=== PATIENT | male | born 1985 | race African-American/Black ===

== ENCOUNTER 2022-10-17 19:12 | Emergency (ER) | payer OTHER, SELFPAY ==
--- NOTE | ~2022-10-17 | XR_ITS ---
EXAMINATION: XR CHEST CLINICAL INFORMATION: Chest pain COMPARISON: None TECHNIQUE: 2 views of the chest were obtained. FINDINGS: No significant abnormality is noted involving the heart, lungs, mediastinum, bony thorax or soft tissues. XR/XR chest 2V IMPRESSION: Unremarkable examination.
--- NOTE | 2022-10-17 19:24 | ECG_ITS ---
Test Reason : cx pain Blood Pressure : / mmHG Vent. Rate : 084 BPM Atrial Rate : 084 BPM P-R Int : 152 ms QRS Dur : 086 ms QT Int : 338 ms P-R-T Axes : 072 025 041 degrees QTc Int : 399 ms Normal sinus rhythm Normal ECG No previous ECGs available Referred By: Lisandra Blanco Electronically Signed By:Liborio Bell
[2022-10-17 19:26] VITALS: BP 111/78; PULSE 85; RESP 18; TEMP 37; O2SAT 100; BMI 28.5
--- NOTE | 2022-10-17 19:26 | ED.GENADULT ---
HPI - General Adult General Chief complaint: General Medical <Lisandra Blanco CNP - Last Filed: 10/17/22 19:32> Stated complaint: sickle cell crisis ,chest pain <Lisandra Blanco CNP - Last Filed: 10/17/22 19:32> Time Seen by Provider: 10/17/22 22:35 <Lisandra Balnco CNP - Last Filed: 10/17/22 19:32> History of Present Illness HPI narrative: Patient is a 36-year-old male with history of sickle cell, HIV on Bictarvy with reportedly undetectable levels who presents emergency department for evaluation of sickle cell crisis. Reports onset of pain yesterday got worse today diffuse all over the body; headache, chest pain, bilateral legs, right hip, and bilateral foot swelling. Reports last crisis 3-4 weeks ago.? He is traveling from [place], drove here today, arrived approximately 2 hours ago.? Pain has been unrelieved with MS Contin (took at 0600) and hydrocodone (took at 0600, and 1100) without any improvement. Patient was on adekveo infusion monthly. <Chris Baldwin MD - Last Filed: 10/18/22 03:04> Related Data Allergies/adverse reactions: Allergies Allergy/AdvReac Type Severity Reaction Status Date / Time No Known Allergies Allergy Verified 10/17/22 19:24 <Lisandra Blanco CNP - Last Filed: 10/17/22 19:32> Review of Systems Review of Systems: Yes all other systems are reviewed and are negative <Chris Baldwin MD - Last Filed: 10/18/22 03:04> [facility] Past Medical History Medical History: Medical History (Updated 10/18/22 @ 02:41 by Chris Baldwin MD) HIV (human immunodeficiency virus infection) Sickle cell anemia <Lisandra Blanco CNP - Last Filed: 10/17/22 19:32> Social History Social History: Social History Advance Directives: No Advance Directives Information Provided: No <Lisandra Blanco CNP - Last Filed: 10/17/22 19:32> Physical Exam ED Vital Signs: Vital Signs - 24 hr 10/17/22 19:26 10/18/22 00:01 Temperature 98.6 F 98.0 F Pulse Rate 85 81 Respiratory Rate 18 17 Blood Pressure 111/78 119/76 Pulse Oximetry 100 96 Oxygen Delivery Method Room Air Room Air BMI result Body Mass Index 28.5 <Lisandra GaribayWILFREDO alvarez - Last Filed: 10/17/22 19:32> Vital Signs - 24 hr 10/17/22 19:26 10/18/22 00:01 Temperature 98.6 F 98.0 F Pulse Rate 85 81 Respiratory Rate 18 17 Blood Pressure 111/78 119/76 Pulse Oximetry 100 96 Oxygen Delivery Method Room Air Room Air BMI result Body Mass Index 28.5 <Chris Baldwin MD - Last Filed: 10/18/22 03:04> Appearance: Alert. Oriented X3. No acute distress. Eyes: Pallor++ ENT: Pharynx normal. Oral Mucosa moist Neck: Normal inspection. Neck supple. CVS: Normal heart rate and rhythm. Pulses normal. Respiratory: No respiratory distress. Equal air entry bilateral, no wheezing/rales/rhonchi Abdomen: Soft and nontender. Bowel sounds are present, no mass palpable, no CVA tenderness Skin: Skin warm and dry. Normal skin color. Normal skin turgor. Extremities: Trace lower extremity edema. No calf tenderness Neuro: Oriented X 3. No motor deficit. <Chris Baldwin MD - Last Filed: 10/18/22 03:04> Course Course Course Narrative: This is an RME: Additional HPI, ROS, PE not included below will be deferred to primary provider. Patient is a 36-year-old male with history of sickle cell, HIV on Bictarvy with reportedly undetectable levels who presents emergency department for evaluation of sickle cell crisis. Reports onset of pain yesterday; headache, chest pain, bilateral legs, right hip, and bilateral foot swelling. Reports last crisis 3-4 weeks ago. He is traveling from [place], drove here today, arrived approximately 2 hours ago. Pain has been unrelieved with MS Contin (took at 0600) and hydrocodone (took at 0600, and 1100) without any improvement. Has a port to R chest, is requesting labs be drawn from port as he is a difficult stick, he is agreeable to 1 attempt at lab draw from triage by peripheral stick. Plan: labs, EKG, CXR, viral testing <Lisandra Blanco CNP - Last Filed: 10/17/22 19:32> Medications Administered Discontinued Medications Generic Name Dose Route Start Last Admin Trade Name Juan PRN Reason Stop Dose Admin Diphenhydramine HCl 50 mg 10/17/22 22:44 10/17/22 23:14 Diphenhydramine Hcl 50 Mg/Ml Vial IVPUSH 10/17/22 22:45 50 mg ONCE ONE Administration Diphenhydramine HCl 50 mg 10/18/22 00:20 10/18/22 00:33 Diphenhydramine Hcl 50 Mg/Ml Vial IVPUSH 10/18/22 00:21 50 mg ONCE ONE Administration Hydromorphone HCl 2 mg 10/17/22 22:38 10/17/22 23:13 Hydromorphone Hcl 2 Mg/Ml Vial IVPUSH 10/17/22 22:39 2 mg ONCE ONE Administration Protocol Hydromorphone HCl 2 mg 10/18/22 00:20 10/18/22 00:33 Hydromorphone Hcl 2 Mg/Ml Vial IVPUSH 10/18/22 00:21 2 mg ONCE ONE Administration Protocol Sodium Chloride 1,000 mls @ 999 mls/hr 10/17/22 22:38 10/18/22 00:36 Ns IV 10/17/22 23:38 Infused .Q1H1M ONE Infusion Sodium Chloride 1,000 mls @ 999 mls/hr 10/18/22 00:21 10/18/22 02:10 Ns IV 10/18/22 01:21 Infused .Q1H1M ONE Infusion <Lisandra Blanco CNP - Last Filed: 10/17/22 19:32> Medications Administered Discontinued Medications Generic Name Dose Route Start Last Admin Trade Name Skyq PRN Reason Stop Dose Admin Diphenhydramine HCl 50 mg 10/17/22 22:44 10/17/22 23:14 Diphenhydramine Hcl 50 Mg/Ml Vial IVPUSH 10/17/22 22:45 50 mg ONCE ONE Administration Diphenhydramine HCl 50 mg 10/18/22 00:20 10/18/22 00:33 Diphenhydramine Hcl 50 Mg/Ml Vial IVPUSH 10/18/22 00:21 50 mg ONCE ONE Administration Hydromorphone HCl 2 mg 10/17/22 22:38 10/17/22 23:13 Hydromorphone Hcl 2 Mg/Ml Vial IVPUSH 10/17/22 22:39 2 mg ONCE ONE Administration Protocol Hydromorphone HCl 2 mg 10/18/22 00:20 10/18/22 00:33 Hydromorphone Hcl 2 Mg/Ml Vial IVPUSH 10/18/22 00:21 2 mg ONCE ONE Administration Protocol Sodium Chloride 1,000 mls @ 999 mls/hr 10/17/22 22:38 10/18/22 00:36 Ns IV 10/17/22 23:38 Infused .Q1H1M ONE Infusion Sodium Chloride 1,000 mls @ 999 mls/hr 10/18/22 00:21 10/18/22 02:10 Ns IV 10/18/22 01:21 Infused .Q1H1M ONE Infusion <Chris Baldwin MD - Last Filed: 10/18/22 03:04> Medical Decision Making Medical Decision Making [facility] Narrative: patient with mild sickle cell crisis improved after IV fluids hydration and pain medication discharge patient home has pain medicine at home to take <Chris Baldwin MD - Last Filed: 10/18/22 03:04> Lab Data [facility] Lab Attestation statement: I reviewed the patient's lab results. <Chris Baldwin MD - Last Filed: 10/18/22 03:04> Result Diagrams: 10/17/22 22:55 10/17/22 22:55 <Lisandra Blanco CNP - Last Filed: 10/17/22 19:32> Labs: Lab Results 10/17/22 10/17/22 10/17/22 Range/Units 22:55 22:55 22:55 WBC 9.7 (4.8-10.8) X10*3/uL RBC 4.19 L (4.60-5.80) X10*6/uL Hgb 10.6 L (14.0-18.0) g/dl Hct 29.7 L (42.0-52.0) % MCV 70.9 L (80.0-98.0) fL MCH 25.3 L (27.0-33.0) pg MCHC 35.7 (31.0-36.0) g/dl RDW 19.5 H (11.0-16.0) % Plt Count 156 L (160-400) X10*3/uL MPV 9.6 (9.4-12.4) fL Immature Gran % (Auto) 0.3 (0.0-0.4) % Neut % (Auto) 62.4 (45-73) % Lymph % (Auto) 31.5 (20-40) % [place] % (Auto) 4.1 (2-11) % Eos % (Auto) 1.2 (0-4) % Baso % (Auto) 0.5 (0-2) % Lymph # (Auto) 3.0 (1.2-4.9) X10*3/uL [place] # (Auto) 0.4 (0.1-1.2) X10*3/uL Eos # (Auto) 0.1 (0.0-0.4) X10*3/uL Baso # (Auto) 0.1 (0.0-0.2) X10*3/uL Abs Immat Gran (auto) 0.03 (0.00-0.03) X10*3/uL Absolute Neuts (auto) 6.0 (2.0-8.3) x10*3/uL Absolute Nucleated RBC 0.000 (0.0-0.012) X10*3/uL Nucleated RBC % (auto) 0.0 (0.0-0.2) /100WBC Absolute Retic 0.110 H (0.026-0.095) X10*6/uL Percent Retic 2.6 H (0.5-1.8) % Immature Retic Fraction 30.9 H (2.3-13.4) % Retic Hgb Equivalent 30.1 (30.0-35.0) pg Sodium 140 (135-145) mmol/L Potassium 3.9 (3.3-5.1) mmol/L Chloride 107 (96-108) mmol/L Carbon Dioxide 25 (22-29) mmol/L Anion Gap 12 (12-20) BUN 6 L (9-16) mg/dL Creatinine 0.79 (0.5-1.4) mg/dL Estim Creat Clear Calc 156.2 Estimated GFR > 60 Random Glucose 100 (60-115) mg/dL Calcium 9.2 (8.4-10.2) mg/dL Total Bilirubin 0.9 (0.0-1.0) mg/dL AST 14 (5-37) U/L ALT 12 (0-40) U/L Alkaline Phosphatase 66 (39-117) U/L Total Protein 7.7 (6.5-8.0) g/dL Albumin 4.5 (3.5-5.0) g/dL Urine Color Urine Appearance Urine pH (5.0-9.0) Ur Specific [place] (1.005-1.025) Urine Protein (Neg-Trace) mg/dL Urine Glucose (UA) (Negative) mg/dL Urine Ketones (Negative) mg/dL Urine Blood (Negative) Urine Nitrite (Negative) Ur Leukocyte Esterase (Negative) COVID-19 ([facility]) Negative (Negative) COVID-19 Clin Com See Note 10/17/22 Range/Units 22:55 WBC (4.8-10.8) X10*3/uL RBC (4.60-5.80) X10*6/uL Hgb (14.0-18.0) g/dl Hct (42.0-52.0) % MCV (80.0-98.0) fL MCH (27.0-33.0) pg MCHC (31.0-36.0) g/dl RDW (11.0-16.0) % Plt Count (160-400) X10*3/uL MPV (9.4-12.4) fL Immature Gran % (Auto) (0.0-0.4) % Neut % (Auto) (45-73) % Lymph % (Auto) (20-40) % [place] % (Auto) (2-11) % Eos % (Auto) (0-4) % Baso % (Auto) (0-2) % Lymph # (Auto) (1.2-4.9) X10*3/uL [place] # (Auto) (0.1-1.2) X10*3/uL Eos # (Auto) (0.0-0.4) X10*3/uL Baso # (Auto) (0.0-0.2) X10*3/uL Abs Immat Gran (auto) (0.00-0.03) X10*3/uL Absolute Neuts (auto) (2.0-8.3) x10*3/uL Absolute Nucleated RBC (0.0-0.012) X10*3/uL Nucleated RBC % (auto) (0.0-0.2) /100WBC Absolute Retic (0.026-0.095) X10*6/uL Percent Retic (0.5-1.8) % Immature Retic Fraction (2.3-13.4) % Retic Hgb Equivalent (30.0-35.0) pg Sodium (135-145) mmol/L Potassium (3.3-5.1) mmol/L Chloride (96-108) mmol/L Carbon Dioxide (22-29) mmol/L Anion Gap (12-20) BUN (9-16) mg/dL Creatinine (0.5-1.4) mg/dL Estim Creat Clear Calc Estimated GFR Random Glucose (60-115) mg/dL Calcium (8.4-10.2) mg/dL Total Bilirubin (0.0-1.0) mg/dL AST (5-37) U/L ALT (0-40) U/L Alkaline Phosphatase (39-117) U/L Total Protein (6.5-8.0) g/dL Albumin (3.5-5.0) g/dL Urine Color Yellow Urine Appearance Clear Urine pH 6.5 (5.0-9.0) Ur Specific [place] 1.010 (1.005-1.025) Urine Protein Negative (Neg-Trace) mg/dL Urine Glucose (UA) Negative (Negative) mg/dL Urine Ketones Negative (Negative) mg/dL Urine Blood Negative (Negative) Urine Nitrite Negative (Negative) Ur Leukocyte Esterase Negative (Negative) COVID-19 ([facility]) (Negative) COVID-19 Clin Com <Lisandra Blanco CNP - Last Filed: 10/17/22 19:32> Lab Results 10/17/22 10/17/22 10/17/22 Range/Units 22:55 22:55 22:55 WBC 9.7 (4.8-10.8) X10*3/uL RBC 4.19 L (4.60-5.80) X10*6/uL Hgb 10.6 L (14.0-18.0) g/dl Hct 29.7 L (42.0-52.0) % MCV 70.9 L (80.0-98.0) fL MCH 25.3 L (27.0-33.0) pg MCHC 35.7 (31.0-36.0) g/dl RDW 19.5 H (11.0-16.0) % Plt Count 156 L (160-400) X10*3/uL MPV 9.6 (9.4-12.4) fL Immature Gran % (Auto) 0.3 (0.0-0.4) % Neut % (Auto) 62.4 (45-73) % Lymph % (Auto) 31.5 (20-40) % [place] % (Auto) 4.1 (2-11) % Eos % (Auto) 1.2 (0-4) % Baso % (Auto) 0.5 (0-2) % Lymph # (Auto) 3.0 (1.2-4.9) X10*3/uL [place] # (Auto) 0.4 (0.1-1.2) X10*3/uL Eos # (Auto) 0.1 (0.0-0.4) X10*3/uL Baso # (Auto) 0.1 (0.0-0.2) X10*3/uL Abs Immat Gran (auto) 0.03 (0.00-0.03) X10*3/uL Absolute Neuts (auto) 6.0 (2.0-8.3) x10*3/uL Absolute Nucleated RBC 0.000 (0.0-0.012) X10*3/uL Nucleated RBC % (auto) 0.0 (0.0-0.2) /100WBC Absolute Retic 0.110 H (0.026-0.095) X10*6/uL Percent Retic 2.6 H (0.5-1.8) % Immature Retic Fraction 30.9 H (2.3-13.4) % Retic Hgb Equivalent 30.1 (30.0-35.0) pg Sodium 140 (135-145) mmol/L Potassium 3.9 (3.3-5.1) mmol/L Chloride 107 (96-108) mmol/L Carbon Dioxide 25 (22-29) mmol/L Anion Gap 12 (12-20) BUN 6 L (9-16) mg/dL Creatinine 0.79 (0.5-1.4) mg/dL Estim Creat Clear Calc 156.2 Estimated GFR > 60 Random Glucose 100 (60-115) mg/dL Calcium 9.2 (8.4-10.2) mg/dL Total Bilirubin 0.9 (0.0-1.0) mg/dL AST 14 (5-37) U/L ALT 12 (0-40) U/L Alkaline Phosphatase 66 (39-117) U/L Total Protein 7.7 (6.5-8.0) g/dL Albumin 4.5 (3.5-5.0) g/dL Urine Color Urine Appearance Urine pH (5.0-9.0) Ur Specific [place] (1.005-1.025) Urine Protein (Neg-Trace) mg/dL Urine Glucose (UA) (Negative) mg/dL Urine Ketones (Negative) mg/dL Urine Blood (Negative) Urine Nitrite (Negative) Ur Leukocyte Esterase (Negative) COVID-19 ([facility]) Negative (Negative) COVID-19 Clin Com See Note 10/17/22 Range/Units 22:55 WBC (4.8-10.8) X10*3/uL RBC (4.60-5.80) X10*6/uL Hgb (14.0-18.0) g/dl Hct (42.0-52.0) % MCV (80.0-98.0) fL MCH (27.0-33.0) pg MCHC (31.0-36.0) g/dl RDW (11.0-16.0) % Plt Count (160-400) X10*3/uL MPV (9.4-12.4) fL Immature Gran % (Auto) (0.0-0.4) % Neut % (Auto) (45-73) % Lymph % (Auto) (20-40) % [place] % (Auto) (2-11) % Eos % (Auto) (0-4) % Baso % (Auto) (0-2) % Lymph # (Auto) (1.2-4.9) X10*3/uL [place] # (Auto) (0.1-1.2) X10*3/uL Eos # (Auto) (0.0-0.4) X10*3/uL Baso # (Auto) (0.0-0.2) X10*3/uL Abs Immat Gran (auto) (0.00-0.03) X10*3/uL Absolute Neuts (auto) (2.0-8.3) x10*3/uL Absolute Nucleated RBC (0.0-0.012) X10*3/uL Nucleated RBC % (auto) (0.0-0.2) /100WBC Absolute Retic (0.026-0.095) X10*6/uL Percent Retic (0.5-1.8) % Immature Retic Fraction (2.3-13.4) % Retic Hgb Equivalent (30.0-35.0) pg Sodium (135-145) mmol/L Potassium (3.3-5.1) mmol/L Chloride (96-108) mmol/L Carbon Dioxide (22-29) mmol/L Anion Gap (12-20) BUN (9-16) mg/dL Creatinine (0.5-1.4) mg/dL Estim Creat Clear Calc Estimated GFR Random Glucose (60-115) mg/dL Calcium (8.4-10.2) mg/dL Total Bilirubin (0.0-1.0) mg/dL AST (5-37) U/L ALT (0-40) U/L Alkaline Phosphatase (39-117) U/L Total Protein (6.5-8.0) g/dL Albumin (3.5-5.0) g/dL Urine Color Yellow Urine Appearance Clear Urine pH 6.5 (5.0-9.0) Ur Specific [place] 1.010 (1.005-1.025) Urine Protein Negative (Neg-Trace) mg/dL Urine Glucose (UA) Negative (Negative) mg/dL Urine Ketones Negative (Negative) mg/dL Urine Blood Negative (Negative) Urine Nitrite Negative (Negative) Ur Leukocyte Esterase Negative (Negative) COVID-19 ([facility]) (Negative) COVID-19 Clin Com <Chris Baldwin MD - Last Filed: 10/18/22 03:04> Discharge Plan Discharge Clinical Impression: Sickle cell anemia with crisis <Lisandra Blanco CNP - Last Filed: 10/17/22 19:32> Patient Disposition: Home, Self-Care <Lisandra Blanco CNP - Last Filed: 10/17/22 19:32> Instructions: Sickle Cell Crisis (ED) <Lisandra Blanco CNP - Last Filed: 10/17/22 19:32> Additional Instructions: continue to take your pain medication drink plenty of fluids <Lisandra Blanco CNP - Last Filed: 10/17/22 19:32>
[2022-10-17 22:58] LABS: MANUAL DIFF FLAG NO
--- NOTE | 2022-10-17 22:59 | PC.NURSE ---
pt confirmed power port, power port accessed via sterile technique, pt tolerated well, labs drawn.
[2022-10-17 23:00] LABS: Appearance Urine Clear; Color Urine Yellow; Glucose Urine UA Negative (Negative); Leukocyte Esterase Urine Negative (Negative); Nitrite Urine Negative (Negative); PH 6.5 (5.0-9.0); Urine Blood Negative (Negative); Urine Ketones Negative (Negative); Urine Protein Negative (Neg-Trace)
[2022-10-17] MEDS: HYDROmorphone HCl 2 MG/ML VIAL IVPUSH (23:13)
[2022-10-17 23:14] LABS: COVID-19 Test Negative (Negative); IDNOW Serial# 16C4AD1C
[2022-10-17] MEDS: diphenhydrAMINE HCL 50 MG/ML VIAL IVPUSH (23:14)
[2022-10-17] MEDS: 0.9 % Sodium Chloride 1,000 ML 999 ML IV (23:14)
[2022-10-17 23:17] LABS: Basophils Absolute Auto 0.1 X10*3/uL (0.0-0.2); Basophils Percent Auto 0.5 % (0-2); Eosinophils Absolute Auto 0.1 X10*3/uL (0.0-0.4); Eosinophils Percent Auto 1.2 % (0-4); Hematocrit 29.7 % (42.0-52.0); Hemoglobin 10.6 g/dl (14.0-18.0); Imm Gran Abs Auto 0.03 X10*3/uL (0.00-0.03); Imm Gran Pct Auto 0.3 % (0.0-0.4); Immature Retic Fraction 30.9 % (2.3-13.4); Lymphocytes Percent Auto 31.5 % (20-40); Mean Corpuscular HGB Conc 35.7 g/dl (31.0-36.0); Mean Corpuscular Hemoglobin 25.3 pg (27.0-33.0); Mean Corpuscular Volume 70.9 fL (80.0-98.0); Mean Platelet Volume 9.6 fL (9.4-12.4); Monocytes Absolute Auto 0.4 X10*3/uL (0.1-1.2); Monocytes Percent Auto 4.1 % (2-11); Neutrophils Percent Auto 62.4 % (45-73); Platelet Count 156 X10*3/uL (160-400); Red Blood Count 4.19 X10*6/uL (4.60-5.80); Red Cell Distribution Width 19.5 % (11.0-16.0); Retic HGB Equivalent 30.1 pg (30.0-35.0); Reticulocyte Percent 2.6 % (0.5-1.8); White Blood Count 9.7 X10*3/uL (4.8-10.8)
[2022-10-17 23:19] LABS: Alanine Aminotransferase 12 U/L (0-40); Albumin Level 4.5 g/dL (3.5-5.0); Alkaline Phosphatase 66 U/L (39-117); Anion Gap 12 (12-20); Aspartate Amino Transferase 14 U/L (5-37); Bilirubin Total 0.9 mg/dL (0.0-1.0); Blood Urea Nitrogen 6 mg/dL (9-16); Calcium 9.2 mg/dL (8.4-10.2); Carbon Dioxide 25 mmol/L (22-29); Chloride 107 mmol/L (96-108); Creatinine Clr Calc Pharmacy 156.2; Estimated Glomerular Filt Rate > 60; Glucose Random 100 mg/dL (60-115); Potassium 3.9 mmol/L (3.3-5.1); Sodium 140 mmol/L (135-145); Total Protein 7.7 g/dL (6.5-8.0)
[2022-10-18 00:01] VITALS: BP 119/76; PULSE 81; RESP 17; TEMP 36.7; O2SAT 96
[2022-10-18] MEDS: HYDROmorphone HCl 2 MG/ML VIAL IVPUSH ×2 (00:33→03:13)
[2022-10-18] MEDS: diphenhydrAMINE HCL 50 MG/ML VIAL IVPUSH (00:33)
[2022-10-18] MEDS: 0.9 % Sodium Chloride 1,000 ML 999 ML IV (00:36)
[2022-10-18] MEDS: ondansetron HCL 4 MG/2 ML VIAL IVPUSH (03:13)
[2022-10-18] MEDS: Heparin Sodium,Porcine Flush 50 UNITS, 0.9 % Sodium Chloride Flush 5 ML IVFLUSH (03:54)
== END 2022-10-18 04:00 | disposition home or self-care (01) ==
PROVIDERS: Nurse Practitioner Family; Emergency Provider Internal Medicine
DX: R07.89 Other chest pain (principal); D57.00 Hb-SS disease with crisis, unspecified; R51.9 Headache, unspecified; M79.10 Myalgia, unspecified site; Z20.822 Contact with and (suspected) exposure to COVID-19; Z20.828 Contact with and (suspected) exposure to other viral communicable diseases; Z79.899 Other long term (current) drug therapy
CPT/HCPCS: 71046; 80053; 81003; 85025; 85045; 87635; 93005; 96361; 96374; 96375; 96376; 99284; J1170; J1200; J1642; J2405